=== PATIENT | male | born 1990 | race Two or more races ===

== ENCOUNTER 2018-12-04 19:43 | Emergency (ER) | payer SELFPAY ==
[2018-12-04 19:50] VITALS: RESP 16
--- NOTE | 2018-12-04 20:00 | ED PDOC ---
HPI: Psych/Substance Abuse Time Seen by Provider: 12/04/18 19:55 Chief Complaint (Nursing): Alcohol Ingestion Chief Complaint (Provider): Alcohol Ingestion ED Caveat: Acuity of Condition, Intoxicated History Per: Family History/Exam Limitations: intoxication Current Symptoms Are (Timing): Still Present (Pt presents to the ED via EMS in an altered state assumedly due to alcohol consumption. A friend that accompanied the patient to the ED indicates that he really did not consume "that much" alc ohol but that he did not eat any food all day. Pt parent and other family is enroute) Modifying Factor(s): Alcohol Past Medical History Reviewed: Historical Data, Nursing Documentation, Vital Signs Vital Signs: Last Vital Signs Temp 98.3 F 12/04/18 19:49 Pulse 83 12/04/18 19:49 Resp 16 12/04/18 19:49 BP 107/69 12/04/18 19:49 Pulse Ox 95 12/04/18 19:49 - Family History Family History: States: Unknown Family Hx - Allergies Allergies/Adverse Reactions: Allergies Allergy/AdvReac Type Severity Reaction Status Date / Time Unobtainable Allergy Verified 12/04/18 19:45 Review of Systems ROS Statement: Except As Marked, All Systems Reviewed And Found Negative Neurological: Positive for: Altered Mental Status Physical Exam - Reviewed Nursing Documentation Reviewed: Yes Vital Signs Reviewed: Yes - Physical Exam Appears: Positive for: Uncomfortable, In Acute Distress Head Exam: Positive for: ATRAUMATIC, NORMAL INSPECTION Skin: Positive for: Normal Color, Warm, Dry. Negative for: Diaphoresis, Pallor, Rash Eye Exam: Positive for: Conjunctival injection, Scleral icterus. Negative for: Nystagmus, Periorbital swelling ENT: Positive for: Normal ENT Inspection Neck: Positive for: Normal, Supple Cardiovascular/Chest: Positive for: Regular Rate, Rhythm Respiratory: Positive for: Normal Breath Sounds Pulses-Carotid (L): 2+ Pulses-Carotid (R): 2+ Pulses-Radial (L): 2+ Pulses-Radial (R): 2+ Gastrointestinal/Abdominal: Positive for: Normal Exam, Soft. Negative for: T enderness, Guarding - Laboratory Results Result Diagrams: 12/04/18 21:25 12/04/18 21:25 - ECG O2 Sat by Pulse Oximetry: 95 Medical Decision Making Medical Decision Making: I: acute alcohol intoxication P: 0012: Pt parents are at bedside and pt is awake and speaking The patient is speaking in clear coherent sentences; the patient's gaze is normal and his gait is strong and straight The patient has not vomited while in the ED The patient desires discharge ICW his parents Disposition - Clinical Impression Clinical Impression: Alcohol ingestion - Patient ED Disposition Is Patient to be Admitted: No - Disposition Disposition: Routine/Home Disposition Time: 00:11 Condition: STABLE Forms: [facility] ([place])
[2018-12-04] MEDS ORDERED: Sodium Chloride 0.9% 1,000 ML IV ONE (20:20)
[2018-12-04 22:06] LABS: BASO % 0.4 % (0.0-2.0); EOS # 0.1 K/uL (0.0-0.7); EOS % 0.6 % (0.0-4.0); HEMOGLOBIN 16.4 g/dL (12.0-18.0); LYMPH # 1.8 K/uL (1.0-4.3); LYMPH % 21.7 % (20.0-40.0); MEAN CELL VOLUME 84.1 fl (80.0-94.0); MEAN CORPUSCULAR HEMOGLOBIN 29.1 pg (27.0-31.0); MEAN CORPUSCULAR HGB CONC 34.6 g/dL (33.0-37.0); MONO # 0.6 K/uL (0.0-0.8); MONO % 7.1 % (0.0-10.0); NEUT # 5.7 K/uL (1.8-7.0); NEUT % 70.2 % (50.0-75.0); NRBC % 0.1 % (0.0-0.0); RBC 5.63 Mil/uL (4.40-5.90); RED CELL DISTRIBUTION WIDTH 12.6 % (11.5-14.5); WHITE BLOOD COUNT 8.1 K/uL (4.8-10.8)
[2018-12-04 22:15] LABS: ALB/GLOB RATIO 1.6 (1.0-2.1); ALBUMIN 4.7 g/dL (3.5-5.0); ALT/SGPT 48 U/L (21-72); AST/SGOT 38 U/L (17-59); BLOOD UREA NITROGEN 17 mg/dl (9-20); CALCIUM 9.4 mg/dL (8.4-10.2); GFR NON-AFRICAN AMERICAN > 60
[2018-12-05 06:23] VITALS: BP 110/65; PULSE 75; TEMP 98.5; O2SAT 97
== END 2018-12-05 00:35 | disposition home or self-care (01) ==
LOC: H.ER 19:43
DX: F10.129 Alcohol abuse with intoxication, unspecified (principal)
CPT/HCPCS: 80053; 85025; 96361; 96374; 99285; G0480; J2405; J7030